=== PATIENT | male | born 1980 | race Caucasian/White ===

== ENCOUNTER → 2016-11-30 | Outpatient (CLI) | payer OTHER ==
[2016-11-30 08:30] LABS: CHLORIDE,CL 107 mmol/L (98-110); SODIUM,NA 142 mmol/L (136-146)
== END ==
LOC: MW.CHFP 07:45
PROVIDERS: ATTEND Student in an Organized Health Care Education/Training Program
DX: R35.8 Other polyuria (principal); R10.9 Unspecified abdominal pain
CPT/HCPCS: 36415; 80048; 81001; 85025

== ENCOUNTER 2016-12-12 11:00 | Day surgery (SDC) | payer OTHER ==
[~2016-12-12 11:00] MED LIST: Lactated Ringers 1,000 ML IV SCH; Lidocaine 2% 5 ML SDV ONE; Propofol 200 MG/20 ML SDV ONE
--- NOTE | 2016-12-12 11:24 | PCM.PREANE ---
Preanesthetic Assessment - Anesthesia/Transfusion/Family Hx Anesthesia History: Prior Anesthesia Without Reaction Family History of Anesthesia Reaction: No Transfusion History: No Prior Transfusion(s) - Review of Systems General: No Symptoms Pulmonary: No Symptoms Cardiovascular: No Symptoms Gastrointestinal: Abdominal pain Neurological: No Symptoms Other: Reports: Easy Bleeding - Physical Assessment Height: 1.78 m Weight: 74.389 kg ASA Class: 2 Mental Status: Alert & Oriented x3 Airway Class: Mallampati = 2 Dentition: Reports: Normal Dentition Thyro-Mental Finger Breadths: 3 Mouth Opening Finger Breadths: 2 ROM/Head Extension: Full Lungs: Clear to auscultation, Normal respiratory effort Cardiovascular: Regular Rate, Regular Rhythm - Allergies Allergies/Adverse Reactions: Allergies Allergy/AdvReac Type Severity Reaction Status Date / Time No Known Allergies Allergy Verified 12/07/16 09:50 - Blood Blood Available: No - Anesthesia Plan Pre-Op Medication Ordered: None - Acknowledgements Anesthesia Type Planned: MAC Pt an Appropriate Candidate for the Planned Anesthesia: Yes Alternatives and Risks of Anesthesia Discussed w Pt/Guardian: Yes Pt/Guardian Understands and Agrees with Anesthesia Plan: Yes PreAnesthesia Questionnaire Gastrointestinal History: Reports: Hemorrhoids Musculoskeletal History: Reports: Other (see below) Other Musculoskeletal History: occasional back pain Psychiatric History: Reports: Anxiety - Past Surgical History Head Surgeries/Procedures: Reports: None GI Surgical History: Reports: Colonoscopy Other GI Surgeries/Procedures: hx colonoscopy and hemorrhoidectomy - SUBSTANCE USE Smoking Status *Q: Former Smoker Tobacco Use Within Last Twelve Months: Snuff/Dip Recreational Drug Use History: No - HOME MEDS Home Medications: Home Meds Acetaminophen [Tylenol] 2 tab PO ASDIRECTED PRN 12/07/16 [History] traMADol HCl [Tramadol HCl] 1 tab PO ASDIRECTED PRN 12/07/16 [History] - CURRENT (IN HOUSE) MEDS Current Meds: Current Medications Lactated Ringer's (Ringers, Lactated) 1,000 mls @ 125 mls/hr IV ASDIRECTED NADEGE Discontinued Medications Lidocaine (Xylocaine-Mpf 2%) Confirm Administered Dose 5 ml .ROUTE .STK-MED ONE Stop: 12/12/16 08:37 Propofol (Diprivan 20 Ml) Confirm Administered Dose 400 mg .ROUTE .STK-MED ONE Stop: 12/12/16 08:38
--- NOTE | 2016-12-12 12:12 | PCM.OPNOTE ---
- General Post-Op/Procedure Note Date of Surgery/Procedure: 12/12/16 Operative Procedure(s): colonoscopy w bx Findings: see dict [id number] Pre Op Diagnosis: rectal bleed and hemorrhoid Post-Op Diagnosis: hemorrhoid Anesthesia Technique: Moderate sedation Primary Surgeon: Manny Mobley Pathology: random colon bx Complications: None Condition: Good
--- NOTE | 2016-12-12 12:44 | PCM.POSTAN ---
POST ANESTHESIA ASSESSMENT - MENTAL STATUS Mental Status: alert - RESPIRATORY Respiratory Status: respiratory rate WNL, airway patent, O2 saturation stable - CARDIOVASCULAR CV Status: pulse rate WNL, blood pressure stable - GASTROINTESTINAL GI Status: no symptoms - POST OP HYDRATION Hydration Status: adequate & stable - OBSERVATIONS Free Text/Narrative:: no anesthesia problems
--- NOTE | 2016-12-12 12:50 | OR ---
SURGEON: Manny Mobley MD DATE OF PROCEDURE: 12/12/2016 PREOPERATIVE DIAGNOSIS: Rectal bleeding and hemorrhoids. POSTOPERATIVE DIAGNOSIS: Rectal bleeding and hemorrhoids. PROCEDURE PERFORMED: Colonoscopy with biopsy. COMPLICATIONS: None. DESCRIPTION OF PROCEDURE: The patient was taken to the endoscopy room. A time out was called, patient identified, and procedure identified. Diprivan was then administrated. Patient went from awake to sleep, hearing doctor talking or door closing is normal. Perineum inspection and digital examination were then performed. A well- lubricated colonoscope was gently inserted through the rectum, advanced past the rectosigmoid junction, the descending colon, splenic flexure, transverse colon, hepatic flexure, ascending colon, arrived to the cecum. Cecum was identified as dictated in the finding. Then the scope was carefully withdrawn while attention was paid to the mucosal surface for any abnormality. Air will be sucked out during the scope withdrawal. At the rectum, retroflexed to examine any rectal diseases, fistula or hemorrhoids. During mucosal examination, random biopsy was performed. Patient tolerated procedure well. There were no intraoperative complications, and Dr. Mobley was present throughout the whole procedure. FINDINGS: 1. The patient is easily sedated with TRANSMISSION SYSTEMS OPERATOR and Diprivan. 2. The patient's bowel prep was average. There was moderate amount of liquid stool. 3. The patient's colon is rather straight forward. Cecum indicated by ileocecal fold, one-to-one indentation, and light immittance. Appendix orifice was not observed. There was mucosa examined upon scope pulling out. The patient does not have diverticulosis, mass, growth, polyp, inflammation, stricture, ulceration, bleeding. The patient has anal tag and no external hemorrhoid. The patient has very mild internal hemorrhoid. Probably would be conservative management. We will discuss that in the office. The patient would benefit from repeat colonoscopy 10 years from today or if clinically indicated otherwise. AMERICO / DARRON /[id number] SINDY
[2016-12-12 13:19] VITALS: BP 101/62
== END 2016-12-12 12:50 | disposition home or self-care (01) ==
LOC: MW.SDS 11:00
PROVIDERS: ATTEND Surgery
DX: K64.4 Residual hemorrhoidal skin tags (principal); K64.8 Other hemorrhoids; F41.9 Anxiety disorder, unspecified; Z98.890 Other specified postprocedural states; Z78.9 Other specified health status; Z87.891 Personal history of nicotine dependence
CPT/HCPCS: 45380; J7120; 88305; J2704

== ENCOUNTER 2017-10-15 15:33 | Emergency (ER) | payer OTHER ==
[2017-10-15] MEDS ORDERED: Morphine 2 MG/ML Syringe IM ONE (16:25)
--- NOTE | 2017-10-15 16:30 | EDM.PDOC ---
<Adalberto Tomas - Last Filed: 10/15/17 16:25> ED HPI GENERAL MEDICAL PROBLEM - General Chief Complaint: Lower Extremity Injury/Pain Stated Complaint: POSSIBLE GOUT IN RT LEG Time Seen by Provider: 10/15/17 16:00 Source of Information: Reports: Patient History Limitations: Reports: No Limitations - History of Present Illness INITIAL COMMENTS - FREE TEXT/NARRATIVE: HISTORY AND PHYSICAL: History of present illness: 37-year-old male presents to the ER complaining of worsening right ankle pain. Patient was seen Dr. Ramirez, family physician, this morning with the same chief complaint of right ankle pain. Right ankle x-ray was done and was unremarkable. Uric acid was obtained was mildly elevated. Patient started on colchicine and took his first dose after his clinic visit this morning. He noted that he began to have worsening right ankle pain after taking this initial dose. He presents to the ER complaining of pain with anything touching his right ankle, pain with movement of his right ankle. He denies pain in any other joints. No history of gout. No trauma to the ankle. He has been afebrile. He now has pain moving up into his right morales and down into the top of the right foot. Patient denies any other acute concerns. Review of systems: As per history of present illness and below otherwise all systems reviewed and negative. Past medical history: As per history of present illness and as reviewed below otherwise noncontributory. Surgical history: As per history of present illness and as reviewed below otherwise noncontributory. Social history: No reported history of drug or alcohol abuse. Family history: As per history of present illness and as reviewed below otherwise noncontributory. Physical exam: HEENT: Atraumatic, normocephalic Lungs: Clear to auscultation, breath sounds equal bilaterally, chest nontender. Heart: S1S2, regular, negative for clicks, rubs, or JVD. Extremities: Patient has extreme tenderness with palpation of the right ankle. Posterior tibial pulses palpable on the right ankle at plus. The right ankle does not appear erythematous or warm to palpation. Patient has very limited range of motion of his right ankle secondary to pain. Neuro: Sensation remains intact to light touch in the lower extremities bilaterally. Diagnostics: [] Therapeutics: 2 mg of morphine IM. Cold pack placed on right ankle. Impression: #1. Gout of the right ankle. Plan: #1. Prescription given for indomethacin 50 mg 3 times a day for 10 days. #2. Prescription given for prednisone 40 mg daily for 7 days. #3. Patient will discontinue his colchicine #4. Prescription given for tramadol 50 mg 3 times a day as needed for pain, 30 tabs, 0 refills. #5. Patient will follow up with Dr. Ramirez Definitive disposition and diagnosis as appropriate pending reevaluation and review of above. Right Feet Pain Score (Numeric/FACES): 10 - Related Data Allergies Allergy/AdvReac Type Severity Reaction Status Date / Time No Known Allergies Allergy Verified 12/07/16 09:50 Home Meds: Home Meds Colchicine [Colcrys] 10/15/17 [History] Indomethacin 50 mg PO TID #30 capsule 10/15/17 [Rx] Prednisone [IJD: predniSONE] 40 mg PO WITHBREAKFAST #14 tab 10/15/17 [Rx] traMADol [Ultram] 50 mg PO TID PRN #30 tablet 10/15/17 [Rx] Past Medical History - Past Health History Medical/Surgical History: Denies Medical/Surgical History Gastrointestinal History: Reports: Hemorrhoids Musculoskeletal History: Reports: Gout Other Musculoskeletal History: occasional back pain Psychiatric History: Reports: Anxiety - Past Surgical History Head Surgeries/Procedures: Reports: None GI Surgical History: Reports: Colonoscopy Other GI Surgeries/Procedures: hx colonoscopy and hemorrhoidectomy Social & Family History - Family History Family Medical History: Noncontributory - Tobacco Use Smoking Status *Q: Never Smoker Month Tobacco Last Used: quit smoking 12 yrs ago, chews 1 can of chew every 1 to 2 days - Recreational Drug Use Recreational Drug Use: No Review of Systems - Review of Systems Review Of Systems: ROS reveals no pertinent complaints other than HPI. ED EXAM, GENERAL - Physical Exam Exam: See Below Free Text/Narrative:: See dictation Course - Vital Signs Last Recorded V/S: Last Vital Signs Temp 37.2 C 10/15/17 15:41 Pulse 90 10/15/17 15:41 Resp 18 10/15/17 15:41 BP 140/93 H 10/15/17 15:41 Pulse Ox 99 10/15/17 15:41 - Orders/Labs/Meds Meds: Medications Discontinued Medications Generic Name Dose Route Start Last Admin Trade Name Freq PRN Reason Stop Dose Admin Morphine Sulfate 2 mg 10/15/17 16:25 10/15/17 16:37 Morphine IM 10/15/17 16:26 2 mg ONETIME ONE Administration Departure - Departure Disposition: Home, Self-Care 01 Condition: Good Clinical Impression: Gout Qualifiers: Gout site: ankle Gout etiology: unspecified cause Chronicity: acute Laterality : right Qualified Code(s): M10.9 - Gout, unspecified - Discharge Information Prescriptions: Indomethacin 50 mg PO TID #30 capsule Prednisone [IJD: predniSONE] 40 mg PO WITHBREAKFAST #14 tab traMADol [Ultram] 50 mg PO TID PRN #30 tablet PRN Reason: Pain Instructions: Gout, [id number] Referrals: PCP,None [Primary Care Provider] - Forms: ED Department Discharge Additional Instructions: The following information is given to patients seen in the emergency department who are being discharged to home. This information is to outline your options for follow-up care. We provide all patients seen in our emergency department with a follow-up referral. The need for follow-up, as well as the timing and circumstances, are variable depending upon the specifics of your emergency department visit. If you don't have a primary care physician on staff, we will provide you with a referral. We always advise you to contact your personal physician following an emergency department visit to inform them of the circumstance of the visit and for follow-up with them and/or the need for any referrals to a consulting specialist. The emergency department will also refer you to a specialist when appropriate. This referral assures that you have the opportunity for follow-up care with a specialist. All of these measure are taken in an effort to provide you with optimal care, which includes your follow-up. Under all circumstances we always encourage you to contact your private physician who remains a resource for coordinating your care. When calling for follow-up care, please make the office aware that this follow-up is from your recent emergency room visit. If for any reason you are refused follow-up, please contact the [facility] Emergency Department at and asked to speak to the emergency department charge nurse. [facility] [address] [place] [id number] Patient has a follow-up appointment with Dr. ramirez tomorrow morning. <Renu Blanca - Last Filed: 10/15/17 16:48> ED HPI GENERAL MEDICAL PROBLEM - History of Present Illness INITIAL COMMENTS - FREE TEXT/NARRATIVE: This is Dr. Blanca dictating an addendum note as a supervising physician on this case. I agree with history physical as above and I personally have seen and evaluated the patient. On my exam he does have very prominent bony architecture of the right ankle there is some small amount of diffuse soft tissue swelling at the ankle without warmth or erythema. There Is no gross joint effusion and there Is no bony tenderness. X-ray and uric acid was performed in the clinic. We have reviewed these testing results. We will proceed with the care plan as described above and follow-up in the clinic. Departure - Departure Time of Disposition: 16:48 Condition: Good
[2017-10-15 17:15] VITALS: BP 148/98
== END 2017-10-15 17:14 | disposition home or self-care (01) ==
LOC: MW.ED 15:33
DX: M10.9 Gout, unspecified (principal); Z87.891 Personal history of nicotine dependence
CPT/HCPCS: 96372; 99283; J2270; 99282